=== PATIENT | female | born 1945 | race Asian ===

== ENCOUNTER 2016-11-08 12:26 | Outpatient (CLI) | payer MEDICARE, OTHER ==
--- NOTE | 2016-11-09 17:55 | Mammography Report ---
DIGITAL SCREENING MAMMOGRAM: 11/08/2016 CLINICAL INDICATION: A 71-year-old for screening. COMPARISON: 11/2015, 10/2012, 08/2011, 08/2010, 07/2009. TECHNIQUE: Routine CC and MLO projections were obtained of the breasts as well as bilateral laterall y exaggerated craniocaudal views. FINDINGS: Parenchymal tissue within both breasts is heterogeneously dense, which may lower the sensi tivity of mammography; however, there are no dominant masses, suspicious microcalcifications, or seco ndary signs of malignancy. In comparison to the previous studies, there are no significant changes. ASSESSMENT: NO MAMMOGRAPHIC EVIDENCE OF MALIGNANCY. NO SIGNIFICANT INTERVAL CHANGES. RECOMMENDATION: Screening mammography is recommended annually. BI-RADS category 1 - negative. STANDARD QUALIFYING STATEMENTS 1. This examination was reviewed with the aid of Computed-Aided Detection (CAD). 2. A negative or benign imaging report should not delay biopsy if clinically suspicious findings are present. Consider surgical consultation if warranted. More than 5% of cancers are not identified by i maging. 3. Dense breasts may obscure an underlying neoplasm. JOB #: [id number] EXT JOB #:[id number]
== END 2016-11-08 12:27 | disposition home or self-care (01) ==
LOC: DI 12:26
PROVIDERS: ATTEND Physician Assistant Medical
DX: Z12.31 Encounter for screening mammogram for malignant neoplasm of breast (principal)
CPT/HCPCS: 77067

== ENCOUNTER 2017-08-25 13:50 | Outpatient (CLI) | payer MEDICARE, OTHER ==
[2017-08-25 19:19] LABS: BASOPHILS % (AUTO) 0.7 %; EOSINOPHILS % (AUTO) 0.4 %; LYMPHOCYTES % (AUTO) 52.7 %; MEAN CORPUSCULAR HEMOGLOBIN 32.1 pg (27.0-31.0); MEAN CORPUSCULAR HGB CONC 33.2 g/dL (32.0-36.0); MEAN CORPUSCULAR VOLUME 96.7 fL (81.0-99.0); MEAN PLATELET VOLUME 10.3 fL (7.9-10.8); MONOCYTES % (AUTO) 14.8 %; NEUTROPHILS % (AUTO) 31.4 %; PLT - PLATELET COUNT 153 10^3/uL (130-450); RED BLOOD COUNT 4.04 10^6/uL (4.20-5.40); RED CELL DISTRIBUTION WIDTH 12.2 % (12.0-15.0); WHITE BLOOD COUNT 3.5 x10^3/uL (4.8-10.8)
[2017-08-25 19:24] LABS: ABNORMAL LYMPHS % (MANUAL) 0 %; BAND NEUTROPHILS % (MANUAL) 0 %
[2017-08-25 19:28] LABS: ALBUMIN 4.4 g/dL (3.2-5.5); ALBUMIN/GLOBULIN RATIO 1.1 (1.0-2.2); ALKALINE PHOSPHATASE 58 IU/L (42-121); ALT ALANINE AMINOTRANSFERASE < 10 IU/L (10-60); AST ASPARTATE AMINOTRANSFERASE 23 IU/L (10-42); BILIRUBIN,TOTAL 1.1 mg/dL (0.2-1.0); BUN - BLOOD UREA NITROGEN 18 mg/dL (6-20); CALCIUM 9.6 mg/dL (8.5-10.3); CARBON DIOXIDE - CO2 27 mmol/L (21-32); CHLORIDE 101 mmol/L (101-111); CHOL/HDL RATIO 2.6 (<4.4); CHOLESTEROL 151 mg/dL; CREATININE 0.7 mg/dL (0.4-1.0); GFR - MDRD 83 (>89); GLUCOSE 93 mg/dL (70-100); HDL CHOLESTEROL 57 mg/dL; LDL CHOLESTEROL,CALCULATED 79 mg/dL; LDL/HDL RATIO 1.4 (<4.4); SODIUM 138 mmol/L (135-145); TOTAL PROTEIN 8.3 g/dL (6.7-8.2); VLDL CHOLESTEROL 15 mg/dL
[2017-08-25 19:54] LABS: DIFFERENTIAL COMMENT MANUAL DIFFERENTIAL; LYMPHOCYTES # (MANUAL) 2.3 10^3/uL (1.5-3.5); LYMPHOCYTES % (MANUAL) 65 %; MONOCYTES # (MANUAL) 0.3 10^3/uL (0.0-1.0); NEUTROPHILS # (MANUAL) 0.9 10^3/uL (1.5-6.6); NEUTROPHILS % (MANUAL) 27 %; PLATELET ESTIMATE, MANUAL NORMAL (130-450,000) (NORMAL); PLATELET MORPHOLOGY NORMAL APPEARANCE (NORMAL); RBC MORPHOLOGY (MULTIPLE) NORMAL APPEARANCE (NORMAL)
== END 2017-08-25 13:51 | disposition home or self-care (01) ==
LOC: LAB.WCP 13:50
PROVIDERS: ATTEND Physician Assistant Medical
DX: I10 Essential (primary) hypertension (principal); E03.9 Hypothyroidism, unspecified; M79.671 Pain in right foot; E78.5 Hyperlipidemia, unspecified
CPT/HCPCS: 36415; 80053; 80061; 83721; 84443; 84550; 85025

== ENCOUNTER 2017-09-14 13:33 | Outpatient (CLI) | payer MEDICARE, OTHER ==
--- NOTE | 2017-09-14 14:20 | XRAY Report ---
Procedure Date: 09/14/2017 Accession Number: [id number] / [id number] Procedure: XR - Foot 3 View LT CPT Code: FULL RESULT: EXAM: Foot 3 View LT DATE: 09/14/2017 1:59 PM CLINICAL HISTORY: HYPER FLEXION OF LT FOOT DURING FALL COMPARISON: None. TECHNIQUE: 3 views. FINDINGS: Bones: Mild posterior calcaneal enthesopathy. Joints: Normal. No subluxations. Soft Tissues: Well rounded linear 6 mm calcific density seen on the oblique view only is felt to be degenerative in nature and not a osseous donor fragment. IMPRESSION: No definite fracture or dislocation. [facility]
--- NOTE | 2017-09-14 14:21 | XRAY Report ---
Procedure Date: 09/14/2017 Accession Number: [id number] / [id number] Procedure: XR - Tib/Fib LT CPT Code: FULL RESULT: EXAM: Tib/Fib LT DATE: 09/14/2017 1:59 PM CLINICAL HISTORY: [id number] COMPARISON: None. TECHNIQUE: 2 views. FINDINGS: Bones: Normal. No fracture or bone lesion. Joints: The visualized knee and ankle joints are normal. Soft Tissues: Normal. No soft tissue swelling. IMPRESSION: Normal tibia/fibula radiography. [facility]
== END 2017-09-14 13:34 | disposition home or self-care (01) ==
LOC: DI 13:33
PROVIDERS: ATTEND Family Medicine
DX: M25.572 Pain in left ankle and joints of left foot (principal)

== ENCOUNTER 2017-10-03 14:49 | Outpatient (CLI) | payer MEDICARE, OTHER ==
--- NOTE | 2017-10-03 17:48 | Ultrasound Report ---
Reason: ABDOMINAL PAIN, LEFT UPPER QUADRANT Procedure Date: 10/03/2017 Accession Number: [id number] / [id number] Procedure: US - Abdomen Complete CPT Code: FULL RESULT: EXAM: ABDOMEN ULTRASOUND EXAM DATE: 10/03/2017 04:00 PM. CLINICAL HISTORY: Left upper quadrant abdominal pain COMPARISON: Complete abdominal ultrasound 07/26/2011. TECHNIQUE: Real-time scanning was performed with static images obtained. FINDINGS: Liver: Coarsened and mildly increased hepatic echogenicity without focal solid lesion. Benign simple cyst in the right hepatic lobe measures up to 7 mm. Normal size, 13.5 cm. Main portal vein flow: Hepatopetal. Gallbladder: No stones, wall thickening or sonographic Fishman sign. Small 2 mm polyp, previously 3 mm, almost certainly benign and does not warrant imaging follow-up given its small size of less than 6 mm. Biliary System: Common bile duct measures 5.9 mm. No intrahepatic or extrahepatic ductal dilatation. Pancreas: Visualized portion is unremarkable. Kidneys: Right: 10.2 cm longitudinally. Normal. No contour-deforming mass, stones, or hydronephrosis. Left: 10.1 cm longitudinally. Normal. No contour-deforming mass, stones, or hydronephrosis. Spleen: 6.6 cm. Normal in size and echotexture. Aorta and Inferior Vena Cava: Unremarkable. Other: None. IMPRESSION: 1. Mildly coarsened and increased hepatic echogenicity, a nonspecific finding which can be seen with any cause of hepatocellular disease but is most often due to hepatic steatosis. No hepatomegaly or focal hepatic lesion demonstrated. 2. Otherwise unremarkable abdominal ultrasound, specifically without cause for left upper quadrant pain. [facility]
== END 2017-10-03 14:50 | disposition home or self-care (01) ==
LOC: DI 14:49
PROVIDERS: ATTEND Physician Assistant Medical
DX: R10.12 Left upper quadrant pain (principal)
CPT/HCPCS: 76700

== ENCOUNTER 2017-10-11 13:48 | Outpatient (CLI) | payer MEDICARE, OTHER | END 2017-10-11 13:49 | disposition home or self-care (01) | LOC: SC 13:48 | PROVIDERS: ATTEND Internal Medicine Pulmonary Disease | DX: G47.33 Obstructive sleep apnea (adult) (pediatric) (principal) | CPT/HCPCS: 99203; G0463; 99212 ==

== ENCOUNTER 2017-10-27 19:23 | Outpatient (CLI) | payer MEDICARE, OTHER | END 2017-10-27 19:24 | disposition home or self-care (01) | LOC: SC 19:23 | PROVIDERS: ATTEND Internal Medicine Pulmonary Disease | DX: G47.33 Obstructive sleep apnea (adult) (pediatric) (principal); G47.61 Periodic limb movement disorder; I44.1 Atrioventricular block, second degree | CPT/HCPCS: 95810 ==

== ENCOUNTER 2017-10-29 07:09 | Outpatient (CLI) | payer MEDICARE, OTHER ==
[2017-10-29] MEDS ORDERED: IOPAMIDOL-300 100 ML VIAL ONE (07:32)
[2017-10-29] MEDS ORDERED: IOPAMIDOL-300 50 ML VIAL ONE (07:32)
[2017-10-29 08:02] LABS: CALCIUM 9.2 mg/dL (8.5-10.3); CREATININE 0.6 mg/dL (0.4-1.0)
[2017-10-29] MEDS ORDERED: IOPAMIDOL-300 100 ML VIAL IVP ONE (08:19)
[2017-10-29] MEDS ORDERED: IOPAMIDOL-300 50 ML VIAL PO ONE (08:19)
--- NOTE | 2017-10-29 13:32 | CT Report ---
Reason: ABDOMINAL PAIN, LEFT UPPER QUADRANT Procedure Date: 10/29/2017 Accession Number: [id number] / [id number] Procedure: CT - Abdomen/Pelvis W/ CPT Code: FULL RESULT: EXAM: CT ABDOMEN AND PELVIS EXAM DATE: 10/29/2017 08:27 AM. CLINICAL HISTORY: ABDOMINAL PAIN, LEFT UPPER QUADRANT. COMPARISONS: None. TECHNIQUE: Routine helical CT imaging was performed through the abdomen and pelvis. IV contrast: 100 cc Isovue-300. Enteric contrast: Yes. Reconstructions: Coronal and sagittal. In accordance with CT protocol optimization, one or more of the following dose reduction techniques were utilized for this exam: automated exposure control, adjustment of mA and/or KV based on patient size, or use of iterative reconstructive technique. FINDINGS: ABDOMEN: Lung Bases: Incompletely included lower lungs are grossly clear. Heart size is within normal limits. No basilar effusions. Liver: Unremarkable. Spleen: Unremarkable. Pancreas: Unremarkable. Gallbladder/Bile Ducts: Gallbladder is unremarkable. Biliary tree is normal caliber. Adrenal Glands: Unremarkable. Kidneys: No mass, calculi, or hydronephrosis. Peritoneum/Mesentery/Bowel: No free fluid, free air, or collection. No intestinal obstruction or inflammation. The appendix is within normal limits. Lymph nodes: No mesenteric, periportal, or retroperitoneal lymphadenopathy. Vasculature: Abdominal aorta is nonaneurysmal. Portal vein is patent. PELVIS: The bladder is unremarkable for the degree of distention. Uterus is absent. No pelvic lymphadenopathy. Bones: No suspicious osseous lesions. Chronic appearing severe compression deformity of L2 and moderate of T12, likely degenerative. IMPRESSION: No acute abnormalities. [facility]
== END 2017-10-29 07:10 | disposition home or self-care (01) ==
LOC: LAB 07:09 → DI 07:10
PROVIDERS: ATTEND Physician Assistant Medical
DX: R10.12 Left upper quadrant pain (principal)
CPT/HCPCS: 36415; 74177; 80048; Q9967

== ENCOUNTER 2017-11-21 15:42 | Outpatient (CLI) | payer MEDICARE, OTHER ==
--- NOTE | 2017-11-22 09:28 | Mammography Report ---
Reason: SCREENING MAMMO Procedure Date: 11/21/2017 Accession Number: [id number] / [id number] Procedure: ANA - Screening Mammo Dig Bilat CPT Code: FULL RESULT: EXAM: Screening Mammo Dig Bilat DATE: 11/21/2017 4:28 PM CLINICAL HISTORY: Routine screening TECHNIQUE: Bilateral CC and MLO views were obtained. COMPARISON: 11-23, 11/14/2015, 10/12/2012, and 08/16/2011 FINDINGS: The breast tissue is heterogeneously dense. There is no significant interval change. No suspicious masses, clustered microcalcifications, skin thickening, or regions of architectural distortion are identified. IMPRESSION: Negative. RECOMMENDATION: Routine annual screening unless otherwise clinically indicated. BIRADS CATEGORY 1: Negative STANDARD QUALIFYING STATEMENTS: 1. This examination was reviewed with the aid of Computer-Aided Detection (CAD). 2. A negative or benign imaging report should not delay biopsy if clinically suspicious findings are present. Consider surgical consultation if warrented. More than 5% of cancers are not identified by imaging. 3. Dense breasts may obscure an underlying neoplasm.
== END 2017-11-21 15:43 | disposition home or self-care (01) ==
LOC: DI 15:42
DX: Z12.31 Encounter for screening mammogram for malignant neoplasm of breast (principal)
CPT/HCPCS: 77067

== ENCOUNTER 2017-12-01 09:21 | Outpatient (CLI) | payer MEDICARE, OTHER ==
--- NOTE | 2017-12-01 16:42 | MRI Report ---
Reason: FOOT PAIN, LEFT, ANKLE PAIN, LEFT Procedure Date: 12/01/2017 Accession Number: [id number] / [id number] Procedure: MRI - Ankle LT W/O CPT Code: FULL RESULT: EXAM: LEFT ANKLE/HINDFOOT MRI WITHOUT CONTRAST EXAM DATE: 12/01/2017 09:46 AM. CLINICAL HISTORY: FOOT PAIN, LEFT, ANKLE PAIN, LEFT. COMPARISON: ANKLE 3 VIEW LT 10/14/2017 2:28 PM. TECHNIQUE: Multiplanar, multisequence T1-weighted and fluid-sensitive sequences of the ankle/hindfoot without contrast. Other: None. FINDINGS: Bones: There is marked low T1, high T2 signal change through the angle of the calcaneum, as well as the anterior process. There is a low T1, low T2 curvilinear line extending from the posterior superior calcaneum, inferior to the angle of the calcaneum, to the anterior process. The findings are consistent with a nondisplaced fracture. The fracture breaches the posterior subtalar joint surface, series 601 and 701 image 18, and the anterior calcaneocuboid joint surface image 15. There is a coronal plane fracture through the articular surface of the sustentaculum alyssa. There is a contusion of the cuboid. The remaining tarsal bones, tibia and fibula appear unremarkable. Articular Cartilage: Unremarkable. Ligaments: The anterior and posterior tibiofibular, anterior and posterior talofibular, and calcaneofibular ligaments are intact. The deltoid ligament appears unremarkable. Complete rupture of the spring ligament inferior to the head of the talus. Anterior Tendons: The tibialis anterior, extensor hallucis longus, and extensor digitorum longus tendons are unremarkable. Medial Tendons: The tibialis posterior, flexor digitorum longus, and flexor hallucis longus tendons are unremarkable. Lateral Tendons: The peroneus brevis and longus are unremarkable. Achilles Tendon: The Achilles tendon is unremarkable. Musculature: No edema or fatty atrophy. Other: There is an effusion of the ankle and subtalar joint. Marked edema in the sinus tarsi. No plantar fasciitis. Moderate subcutaneous edema. IMPRESSION: 1. Nondisplaced fracture of the calcaneum breaching the articular surfaces of the posterior subtalar joint, sustentaculum alyssa and calcaneocuboid joint. 2. Contusion of the cuboid. 3. Complete rupture of the spring ligament. 4. Large joint effusion. [facility] MUSCULOSKELETAL RADIOLOGY SECTION
--- NOTE | 2017-12-01 17:13 | MRI Report ---
Reason: FOOT PAIN, LEFT, ANKLE PAIN, LEFT Procedure Date: 12/01/2017 Accession Number: [id number] / [id number] Procedure: MRI - Foot LT W/O CPT Code: FULL RESULT: EXAM: LEFT MIDFOOT MRI WITHOUT CONTRAST EXAM DATE: 12/01/2017 11:01 AM. CLINICAL HISTORY: FOOT PAIN, LEFT, ANKLE PAIN, LEFT. COMPARISON: ANKLE LT W/O 12/01/2017 9:46 AM. TECHNIQUE: Multiplanar, multisequence T1-weighted and fluid-sensitive sequences of the midfoot without contrast. Other: None. FINDINGS: Bones: Calcaneus fracture with marrow edema, partially visualized. Mild bone bruise with marrow edema and the cuboid, also seen on ankle MR. Remainder of the visualized midfoot and forefoot bones appear intact. Mild degenerative changes in the tarsometatarsal joints. Articular Cartilage: Unremarkable. Ligaments: The visualized intertarsal, intermetatarsal, and tarsometatarsal ligaments are intact. This includes the Lisfranc ligament. The visualized collateral ligaments are intact. Tendons: The flexor and extensor tendons are unremarkable. Musculature: No edema or fatty atrophy. Soft tissues: Soft tissue edema in the hindfoot and ankle. Midfoot and visualized forefoot soft tissues otherwise unremarkable. IMPRESSION: 1. Calcaneal fracture and cuboid bone bruise again noted. 2. Midfoot appears intact. Midfoot ligaments and visualized tendons appear intact. No additional fractures. [facility] MUSCULOSKELETAL RADIOLOGY SECTION
== END 2017-12-01 09:22 | disposition home or self-care (01) ==
LOC: DI 09:21
PROVIDERS: ATTEND Physician Assistant Medical
DX: S92.002A Unspecified fracture of left calcaneus, initial encounter for closed fracture (principal); S93.492A Sprain of other ligament of left ankle, initial encounter; S90.02XA Contusion of left ankle, initial encounter

== ENCOUNTER 2017-12-05 14:12 | Outpatient (CLI) | payer MEDICARE, OTHER | END 2017-12-05 14:13 | disposition home or self-care (01) | LOC: SC 14:12 | PROVIDERS: ATTEND Nurse Practitioner Family | DX: G47.33 Obstructive sleep apnea (adult) (pediatric) (principal); G47.61 Periodic limb movement disorder; I44.1 Atrioventricular block, second degree | CPT/HCPCS: 99215; G0463; 99212 ==

== ENCOUNTER 2017-12-14 17:56 | Outpatient (CLI) | payer MEDICARE, OTHER ==
--- NOTE | 2017-12-15 10:25 | Ultrasound Report ---
Reason: KNEE PAIN, LEFT Procedure Date: 12/14/2017 Accession Number: [id number] / [id number] Procedure: US - Ext Limited Non Vascular CPT Code: FULL RESULT: EXAM: LEFT UPPER EXTREMITY ULTRASOUND - LIMITED EXAM DATE: 12/14/2017 06:37 PM. CLINICAL HISTORY: Knee pain, left. COMPARISON: None. TECHNIQUE: Real-time scanning was performed with static images obtained. FINDINGS: There is a 3.3 x 2.3 x 5.9 cm complex cyst which contains internal debris and appears to arise between the medial head of the gastrocnemius and the semimembranosus most consistent with a Butterfield's cyst. IMPRESSION: Butterfield's cyst. [facility]
== END 2017-12-14 17:57 | disposition home or self-care (01) ==
LOC: DI 17:56
PROVIDERS: ATTEND Family Medicine
DX: M71.22 Synovial cyst of popliteal space [Baker], left knee (principal)
CPT/HCPCS: 76882

== ENCOUNTER 2018-09-28 08:59 | Outpatient (CLI) | payer MEDICARE, OTHER ==
[2018-10-03 18:04] VITALS: BP 120/70
--- NOTE | 2018-10-03 18:04 | SLEEP CARE CONSULTATION ---
Information from patient questionnaire entered by Tanya Aleman. I have reviewed and concur with the information entered by Tanya Aleman. This document represents the service I personally performed and the decisions made by me, Zoila Mendieta, RN, MSN, COUNTERINTELLIGENCE/HUMINT SPECIALIST. History of Present Illness Previous diagnosis: Mild, Severe, Obstructive Sleep Apnea-Hypopnea Syndrome AHI: 6.0 Reason for CPAP/BiPAP follow up: annual Equipment type: CPAP Equipment obtained from: [employer] Mask style: Nasal (Dreamwear) Mask brand: Respironics Backup mask available: Yes Last cushion change: 2-3 weeks ago HPI additional information: Patient here today to update her CPAP as it is over 5 years old. The device has started to get noisier and the knob just broke off. 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 When leaving [place] last week, she left the CPAP there to use when returns thinking she would get her new CPAP soon. She also forgot to bring compliance card not realizing it was needed to update her device. She tried to call [employer] while away and her phone calls were not returned. She also obtained a [employer] device and is pleased with benefit. Subjective Patient concerns: denies: aerophagia, mask discomfort, air blowing in eyes, mask leak noise, condensation in mask/hose, nasal congestion, dry mouth, nose, throat, epistaxis Observed to snore while using device: No Current pressure setting perceived as: comfortable On therapy, patient: reports: sleeping better, awakening more refreshed, being more awake and alert during the day, more rested overall. denies: drowsiness while driving Initial [place] Sleepiness Scale score: 10 Current [place] Sleepiness Scale score: 10 Allergies and Home Medications Known drug allergies: Yes (sulfa , codiene) Home medication list reviewed: Yes Allergy and home medication list: Zocor (Simvastatin) 20mg tab one daily at bedtime Toprol XL (Metoprolol Succinate) 50mg tab one daily Prozac 10 mg 2 pills daily Synthroid (Levothyroxine Sodium) 88mcg tab one daily omeprazole 20mg daily Review of Systems Review of systems same as previous: No (endoscopy showed irritation of stomach and started on omeprazole) Physical Exam Blood Pressure: 120/70 Cuff size: regular Heart Rate: 67 O2 Saturation: 98 Height: 5 ft 4 in Weight (kg): 51.075 kg Body Mass Index: 19.3 BMI Classification: Healthy weight Impression and Plan 1. Obstructive Sleep Apnea-Hypopnea Syndrome, mild but moderate in supine position, with unknown treatment compliance and unknown apnea control. On CPAP therapy, the patient has better sleep quality and is more rested overall. She reports she has been using CPAP nightly and even taking on vacation. As noted in HPI she left her old CPAP in [place] to use while there as she was updating her CPAP. However, did not realized she needed the data card to show compliance. So I advised her to have her son send data card so I could obtain data. Until then since her apnea is more severe in supine position, she was advised to avoid supine sleep with pillow positioning. She prefers supine sleep and forgot her apnea was worse in that position without CPAP. I again reviewed her past 2 polysomnographies hypnograms that showed moderate hypoxia with apneas. Upon receiving her data card, I will call patient with results and update her CPAP. A Respironics is preferred when shown sample devices. If her compliance is not at 70% or above, she will need to restart using her old CPAP until compliance met for update. Compliance guidelines reviewed for new PAP and to contact us to schedule appointment as soon as receives. Since she is having difficulty contacting her current DME , I will have my tool coordinator inform her of other supply companies. I will have her check to see if there is a national company that serves both areas of patient's residences. Patient's apnea severity and rationale for treatment to reduce apnea, improve sleep quality and reduce cardiovascular and cerebrovascular events was reviewed. I also reviewed the benefit of consistent device use of CPAP for hypertension, depression/anxiety. * Continue CPAP pressure at 6 cmH2O * Obtain compliance report * Transfer to new DME * avoid supine sleep until gets her CPAP * Contact patient with results and plan. * Notify me if snoring with mask or feeling that the pressure is too much or too little * Attempt to lose weight * Return for follow up in 1 month after new device or to meet compliance , or sooner if concerns arise * * Addendum: 10-03-18 Received compliance report from CPAP. Patient using CPAP an average of 6 hours a night with 91.1% compliance of more than 4 hours of use a night for the past 180 days until 09/12/18. The pressure is set at 6cmH20 and there is good apnea control with residual AHI of 3.3. Patient called and informed today. * * A [facility] prescription made for update and transfer to [facility] per patient choice. This company is available at both resident sites. I spent 100% of this 35 minute visit face to face with the patient with greater than 50% of this was spent time counseling the patient and coordination of care.
== END 2018-09-28 09:00 | disposition home or self-care (01) ==
LOC: SC 08:59
PROVIDERS: ATTEND Nurse Practitioner Family
DX: G47.33 Obstructive sleep apnea (adult) (pediatric) (principal)
CPT/HCPCS: 99214; G0463; 99212

== ENCOUNTER 2018-10-19 09:00 | Outpatient (CLI) | payer MEDICARE, OTHER ==
--- NOTE | 2018-10-19 16:11 | XRAY Report ---
Reason: LEFT HIP PAIN Procedure Date: 10/19/2018 Accession Number: [id number] / [id number] Procedure: WCP - Hip 1 View LT CPT Code: FULL RESULT: EXAM: LEFT HIP RADIOGRAPHY EXAM DATE: 10/19/2018 02:24 PM. CLINICAL HISTORY: LEFT HIP PAIN. COMPARISON: ABDOMEN/PELVIS W10/29/2017 8:18 AM. TECHNIQUE: 2 views. FINDINGS: Bones: Normal. No fractures or bone lesion. Joints: Normal. No dislocation. The hip joint space is preserved. Soft Tissues: Normal. No soft tissue swelling. IMPRESSION: Normal hip radiography. [facility]
--- NOTE | 2018-10-19 16:36 | XRAY Report ---
Reason: LOW BACK PAIN Procedure Date: 10/19/2018 Accession Number: [id number] / [id number] Procedure: WCP - Lumbar Spine 2 View CPT Code: FULL RESULT: EXAM: LUMBOSACRAL SPINE RADIOGRAPHY EXAM DATE: 10/19/2018 02:24 PM. CLINICAL HISTORY: LOW BACK PAIN. COMPARISONS: ABDOMEN/PELVIS W/ 10/29/2017 8:18 AM. TECHNIQUE: 2 views. FINDINGS: Alignment: Normal. No spondylolisthesis or scoliosis. Bones: Five [id number] lumbar vertebral bodies are present. Chronic mild to moderate compression deformities of T12 and L2. No acute osseous abnormality seen. Disks: Normal. Disk heights are maintained. Facets: No degenerative changes. Sacroiliac Joints: Unremarkable. Soft Tissues: Moderate stool burden. The visualized bowel gas pattern is normal. IMPRESSION: 1. No acute abnormality seen in the lumbar spine. 2. Chronic mild to moderate compression deformities of T12 and L2. [facility]
== END 2018-10-19 23:59 | disposition home or self-care (01) ==
LOC: DI.WCP 09:00 → EDSTATUS 13:35 → DI.WCP 23:59
PROVIDERS: ATTEND Physician Assistant Medical
DX: M43.8X6 Other specified deforming dorsopathies, lumbar region (principal); M43.8X4 Other specified deforming dorsopathies, thoracic region; M25.552 Pain in left hip
CPT/HCPCS: 72100

== ENCOUNTER 2018-10-19 14:06 | Outpatient (CLI) | payer MEDICARE, OTHER ==
[2018-10-19 18:55] LABS: BASOPHILS % (AUTO) 0.5 %; EOSINOPHILS % (AUTO) 0.5 %; HGB - HEMOGLOBIN 12.4 g/dL (12.0-16.0); LYMPHOCYTES # (AUTO) 1.8 10^3/uL (1.5-3.5); LYMPHOCYTES % (AUTO) 45.3 %; MEAN CORPUSCULAR HGB CONC 30.5 g/dL (32.0-36.0); MEAN CORPUSCULAR VOLUME 98.3 fL (81.0-99.0); MEAN PLATELET VOLUME 12.1 fL (7.9-10.8); MONOCYTES # (AUTO) 0.6 10^3/uL (0.0-1.0); MONOCYTES % (AUTO) 14.3 %; NEUTROPHILS # (AUTO) 1.6 10^3/uL (1.5-6.6); NEUTROPHILS % (AUTO) 38.4 %; PLT - PLATELET COUNT 165 10^3/uL (130-450); RED BLOOD COUNT 4.13 10^6/uL (4.20-5.40); RED CELL DISTRIBUTION WIDTH 12.3 % (12.0-15.0); WHITE BLOOD COUNT 4.1 x10^3/uL (4.8-10.8)
[2018-10-19 19:17] LABS: ALBUMIN 4.5 g/dL (3.2-5.5); ALBUMIN/GLOBULIN RATIO 1.1 (1.0-2.2); ALKALINE PHOSPHATASE 64 IU/L (42-121); ALT ALANINE AMINOTRANSFERASE < 10 IU/L (10-60); AST ASPARTATE AMINOTRANSFERASE 20 IU/L (10-42); BILIRUBIN,TOTAL 0.7 mg/dL (0.2-1.0); BUN - BLOOD UREA NITROGEN 14 mg/dL (6-20); CALCIUM 9.8 mg/dL (8.5-10.3); CARBON DIOXIDE - CO2 31 mmol/L (21-32); CHLORIDE 98 mmol/L (101-111); CHOL/HDL RATIO 2.9 (<4.4); CHOLESTEROL 162 mg/dL; CREATININE 0.5 mg/dL (0.4-1.0); GFR - MDRD 122 (>89); GLUCOSE 88 mg/dL (70-100); HDL CHOLESTEROL 56 mg/dL; LDL CHOLESTEROL,CALCULATED 90 mg/dL; LDL/HDL RATIO 1.6 (<4.4); SODIUM 138 mmol/L (135-145); TOTAL PROTEIN 8.5 g/dL (6.7-8.2); VLDL CHOLESTEROL 16 mg/dL
== END 2018-10-19 23:59 | disposition home or self-care (01) ==
LOC: LAB.WCP 14:06
PROVIDERS: ATTEND Physician Assistant Medical
DX: E78.5 Hyperlipidemia, unspecified (principal); E03.9 Hypothyroidism, unspecified
CPT/HCPCS: 36415; 80053; 80061; 83721; 84443; 85025

== ENCOUNTER 2018-10-24 10:36 | Outpatient (CLI) | payer MEDICARE, OTHER ==
--- NOTE | 2018-10-24 15:17 | Ultrasound Report ---
Reason: CHEST WALL MASS Procedure Date: 10/24/2018 Accession Number: [id number] / [id number] Procedure: US - Chest CPT Code: FULL RESULT: EXAM: CHEST ULTRASOUND - LIMITED EXAM DATE: 10/24/2018 12:38 PM. CLINICAL HISTORY: LEFT CHEST WALL MASS inferior to the medial left clavicle. Left shoulder and arm pain COMPARISON: None. TECHNIQUE: Real-time scanning was performed with static images obtained. FINDINGS: In the area of clinical interest inferior and slightly medial to the left clavicular no cystic or solid mass or abnormal fluid collection is identified. No soft tissue asymmetry is seen when scanning of the similar right-sided area is performed. IMPRESSION: Negative left chest wall ultrasound. No abnormality is identified by ultrasound in the area of clinical concern. If the abnormality persists consider further evaluation by CT. [facility]
== END 2018-10-24 10:37 | disposition home or self-care (01) ==
LOC: DI 10:36
PROVIDERS: ATTEND Physician Assistant Medical
DX: R22.2 Localized swelling, mass and lump, trunk (principal)
CPT/HCPCS: 76604

== ENCOUNTER 2018-11-03 10:27 | Outpatient (CLI) | payer MEDICARE, OTHER ==
--- NOTE | 2018-11-06 08:33 | DEXA Report ---
Reason: OSTEOPOROSIS Procedure Date: 11/03/2018 Accession Number: [id number] / [id number] Procedure: DEX - Dexa Spine and/or Hip CPT Code: FULL RESULT: EXAM: Dexa Spine and/or Hip DATE: 11/03/2018 12:16 PM CLINICAL HISTORY: OSTEOPOROSIS TECHNIQUE: Dual energy x-ray absorptiometry (DXA) was performed on a [employer] System. Regions measured are the AP Spine, femoral neck, and if needed forearm. COMPARISON: 2010, not applicable this study was performed on device different banquet set up person. In accordance with the International Society for Clinical Densitometry (ISCD) guidelines, data from previous exams may be reanalyzed using current recommendations and techniques. This is done to allow a more accurate basis for comparison with the current study. FINDINGS: The data for the lumbar spine is as follows: BMD (g/cm/cm) T-SCORE Z-SCORE REGION L1 0.867 -2.2 0.0 L2 1.041 -1.3 0.9 L3 0.954 -2.0 0.2 L4 0.940 -2.2 0.0 TOTAL 0.949 -1.9 0.3 NOTE: All evaluable vertebrae are used for classification The data for the hip is as follows: BMD (g/cm/cm) T-SCORE Z-SCORE REGION Neck 0.709 -2.4 -0.3 TOTAL 0.633 -3.0 -1.1 NOTE: The femoral neck or total proximal femur, whichever is lowest, is used for classification. IMPRESSION: THE WHO CLASSIFICATION BASED ON THE INTERNATIONAL REFERENCE STANDARD IS OSTEOPOROSIS. THE FRACTURE RISK IS HIGH. RECOMMENDATION: Patients with diagnosis of osteoporosis or osteopenia should have regular bone mineral density assessment. For those eligible for Medicare, routine testing is allowed once every 2 years. Testing frequency can be increased for patients who have rapidly progressing disease or for those who are receiving medical therapy to restore bone mass. COMMENT: World Health Organization (WHO) definitions for osteoporosis and osteopenia: NORMAL BMD: T-score at -1.0 or higher, fracture risk is low OSTEOPENIA BMD: T-score between -1.0 and -2.5, fracture risk is increased. OSTEOPOROSIS BMD: T-score at -2.5 or lower, fracture risk is high. National Osteoporosis Foundation recommends: 1. Obtain adequate dietary calcium (at least 1200 mg per day) and vitamin D (400-800 international units per day). 2. Participate, as appropriate, in regular weightbearing and muscle-strengthening exercise. 3. Avoid tobacco use and reduce alcohol and caffeine intake. 4. For more detailed information see the website at www.NOF.org.
--- NOTE | 2018-11-10 05:32 | DEXA Report ---
Reason: hyperparathyroidism Procedure Date: 11/03/2018 Accession Number: [id number] / [id number] Procedure: DEX - Dexa Forearm CPT Code: FULL RESULT: EXAM: Dexa Forearm DATE: 11/03/2018 12:16 PM CLINICAL HISTORY: Hyperparathyroidism TECHNIQUE: Peripheral right forearm dual energy x-ray absorptiometry (DXA) was performed on a [employer] System. COMPARISON: No previous forearm DEXA In accordance with the International Society for Clinical Densitometry (ISCD) guidelines, data from previous exams may be reanalyzed using current recommendations and techniques. This is done to allow a more accurate basis for comparison with the current study. The data for the right forearm is as follows: BMD (g/cm/cm) T-SCORE Z-SCORE REGION /3 0.521 -4.1 -2.1 NOTE: The 33% radius of the nondominant forearm is used for classification. IMPRESSION: THE WHO CLASSIFICATION BASED ON THE INTERNATIONAL REFERENCE STANDARD IS OSTEOPOROSIS. THE FRACTURE RISK IS HIGH. RECOMMENDATION: Patients with diagnosis of osteoporosis or osteopenia should have regular bone mineral density assessment. For those eligible for Medicare, routine testing is allowed once every 2 years. Testing frequency can be increased for patients who have rapidly progressing disease or for those who are receiving medical therapy to restore bone mass. COMMENT: World Health Organization (WHO) definitions for osteoporosis and osteopenia: NORMAL BMD: T-score at -1.0 or higher, fracture risk is low OSTEOPENIA BMD: T-score between -1.0 and -2.5, fracture risk is increased. OSTEOPOROSIS BMD: T-score at -2.5 or lower, fracture risk is high. National Osteoporosis Foundation recommends: 1. Obtain adequate dietary calcium (at least 1200 mg per day) and vitamin D (400-800 international units per day). 2. Participate, as appropriate, in regular weightbearing and muscle-strengthening exercise. 3. Avoid tobacco use and reduce alcohol and caffeine intake. 4. For more detailed information see the website at www.NOF.org.
== END 2018-11-03 10:28 | disposition home or self-care (01) ==
LOC: DI 10:27
PROVIDERS: ATTEND Physician Assistant Medical
DX: M81.0 Age-related osteoporosis without current pathological fracture (principal)
CPT/HCPCS: 77080; 77081

== ENCOUNTER 2018-12-01 12:22 | Outpatient (CLI) | payer MEDICARE, OTHER ==
--- NOTE | 2018-12-01 13:39 | Mammography Report ---
Reason: ROUTINE MAMMO Procedure Date: 12/01/2018 Accession Number: [id number] / [id number] Procedure: MGN - Screening Mammo Dig Bilat CPT Code: FULL RESULT: EXAM: Screening Mammo Dig Bilat DATE: 12/01/2018 12:45 PM CLINICAL HISTORY: Routine screening TECHNIQUE: (B) - Bilateral CC and MLO views were obtained. COMPARISON: 11/21/2017, 11/08/2016, 11/14/2015, 10/12/2012, 08/16/2011, 08/26/2010 and 07/11/2009 PARENCHYMAL PATTERN: (D) - The breasts demonstrate heterogeneously dense fibroglandular parenchyma bilaterally. FINDINGS: No significant interval change. There are no suspicious masses, calcifications, or areas of distortion. IMPRESSION: Negative examination. BI-RADS category 1. RECOMMENDATION: (ANNUAL) - Recommend routine annual screening mammography. BI-RADS CATEGORY: (1) - Negative. STANDARD QUALIFYING STATEMENTS: 1. This examination was not reviewed with the aid of Computer-Aided Detection (CAD). 2. A negative or benign imaging report should not preclude biopsy if clinically suspicious findings are present. 3. Dense breasts may obscure an underlying neoplasm. 4. This examination was reviewed without the aid of 3D breast imaging (tomosynthesis).
== END 2018-12-01 12:23 | disposition home or self-care (01) ==
LOC: DI.N 12:22
DX: Z12.31 Encounter for screening mammogram for malignant neoplasm of breast (principal)
CPT/HCPCS: 77067

== ENCOUNTER 2020-07-28 14:19 | Outpatient (CLI) | payer MEDICARE, OTHER ==
--- NOTE | 2020-07-28 15:23 | XRAY Report ---
PROCEDURE: Clavicle LT INDICATIONS: L SC JOINT PX TECHNIQUE: 2 views of the clavicle were acquired. COMPARISON: None. FINDINGS: Bones: No fractures or dislocations. No suspicious bony lesions. Soft tissues: No suspicious soft tissue calcifications. IMPRESSION: A definite source of clavicular/AC joint pain is not found. No trauma identified. Reviewed by: Eugene Ni MD on 07/28/2020 3:21 PM PDT Approved by: Eugene Ni MD on 07/28/2020 3:21 PM PDT Station ID: [id number]
--- NOTE | 2020-07-28 15:24 | XRAY Report ---
PROCEDURE: Shoulder 2 View LT INDICATIONS: L SHOULDER PX TECHNIQUE: 2 views of the shoulder were acquired. COMPARISON: Clavicle plain films same day.. FINDINGS: Bones: No fractures or dislocations but there is a small degree of joint space narrowing of the marixa ohumeral joint indicating mild osteoarthritis in this area.. No suspicious bony lesions. Visualized ribs appear intact. Soft tissues: No suspicious soft tissue calcifications. IMPRESSION: Mild osteoarthritis at the glenohumeral joint, no subluxation or AC joint osteoarthritis is found. Reviewed by: Eugene Ni MD on 07/28/2020 3:22 PM PDT Approved by: Eugene Ni MD on 07/28/2020 3:22 PM PDT Station ID: [id number]
== END 2020-07-28 23:59 | disposition home or self-care (01) ==
LOC: DI.N 14:19
PROVIDERS: ATTEND Family Medicine
DX: M25.512 Pain in left shoulder (principal); M19.012 Primary osteoarthritis, left shoulder

== ENCOUNTER 2020-10-24 08:00 | Outpatient (CLI) | payer MEDICARE, OTHER ==
[2020-10-24 18:40] LABS: BASOPHILS % (AUTO) 0.3 %; EOSINOPHILS % (AUTO) 0.2 %; HCT - HEMATOCRIT 39.2 % (37.0-47.0); HGB - HEMOGLOBIN 11.8 g/dL (12.0-16.0); LYMPHOCYTES # (AUTO) 1.9 10^3/uL (1.5-3.5); LYMPHOCYTES % (AUTO) 28.5 %; MEAN CORPUSCULAR HEMOGLOBIN 30.5 pg (27.0-31.0); MEAN CORPUSCULAR HGB CONC 30.1 g/dL (32.0-36.0); MEAN CORPUSCULAR VOLUME 101.3 fL (81.0-99.0); MEAN PLATELET VOLUME 10.7 fL (7.9-10.8); MONOCYTES # (AUTO) 1.3 10^3/uL (0.0-1.0); MONOCYTES % (AUTO) 19.9 %; NEUTROPHILS # (AUTO) 3.3 10^3/uL (1.5-6.6); NEUTROPHILS % (AUTO) 50.3 %; PLT - PLATELET COUNT 264 10^3/uL (130-450); RED BLOOD COUNT 3.87 10^6/uL (4.20-5.40); RED CELL DISTRIBUTION WIDTH 12.3 % (12.0-15.0); WHITE BLOOD COUNT 6.6 x10^3/uL (4.8-10.8)
[2020-10-24 20:23] LABS: ALBUMIN 4.2 g/dL (3.2-5.5); ALKALINE PHOSPHATASE 49 IU/L (42-121); ALT ALANINE AMINOTRANSFERASE 15 IU/L (10-60); AST ASPARTATE AMINOTRANSFERASE 22 IU/L (10-42); BILIRUBIN,TOTAL 0.7 mg/dL (0.2-1.0); BUN - BLOOD UREA NITROGEN 12 mg/dL (6-20); CALCIUM 9.7 mg/dL (8.5-10.3); CARBON DIOXIDE - CO2 31 mmol/L (21-32); CHLORIDE 97 mmol/L (101-111); CHOL/HDL RATIO 3.4 (<4.4); CHOLESTEROL 137 mg/dL; CREATININE 0.8 mg/dL (0.4-1.0); GFR - MDRD 70 (>89); GLUCOSE 102 mg/dL (70-100); HDL CHOLESTEROL 40 mg/dL; LDL CHOLESTEROL,CALCULATED 82 mg/dL; LDL/HDL RATIO 2.1 (<4.4); POTASSIUM 4.6 mmol/L (3.5-5.0); SODIUM 140 mmol/L (135-145); THYROID STIMULATING HORMONE 6.53 uIU/mL (0.34-5.60); TOTAL PROTEIN 8.6 g/dL (6.7-8.2); TRIGLYCERIDES 73 mg/dL; VLDL CHOLESTEROL 15 mg/dL
[2020-10-24 21:20] LABS: FREE T4 (FREE THYROXINE) 0.98 ng/dL (0.58-1.64)
== END 2020-10-24 23:59 | disposition home or self-care (01) ==
LOC: LAB.WCP 08:00
PROVIDERS: ATTEND Physician Assistant Medical
DX: I10 Essential (primary) hypertension (principal); E78.5 Hyperlipidemia, unspecified; E03.9 Hypothyroidism, unspecified
CPT/HCPCS: 36415; 80053; 80061; 83721; 84439; 84443; 85025

== ENCOUNTER 2020-11-17 15:41 | Outpatient (CLI) | payer MEDICARE, OTHER ==
--- NOTE | 2020-11-18 08:43 | Mammography Report ---
BILATERAL DIGITAL SCREENING MAMMOGRAM 3D/2D: 11/17/2020 CLINICAL: Routine screening. Comparison is made to exams dated: 12/01/2018 mammogram, 11/21/2017 mammogram, 11/08/2016 mammogram, 11/14/2015 mammogram, 10/12/2012 mammogram, and 08/16/2011 mammogram - [facility]. The tissue of both breasts is predominantly fatty. No significant masses, calcifications, or other findings are seen in either breast. There has been no significant interval change. IMPRESSION: NEGATIVE There is no mammographic evidence of malignancy. A 1 year screening mammogram is recommended. This exam was interpreted at Station ID: [id number]. NOTE: For mammograms, a report in lay terms will be sent to the patient. Approximately 15% of breast malignancies will not be visualized mammographically. In the management of a palpable breast mass, a negative mammogram must not discourage biopsy of a clinically suspicious lesion. Electronically Signed By: Chapo Suero acr/penrad:11/17/2020 16:13:17 ACR BI-RADS Category 1: Negative 3341F PARENCHYMAL PATTERN: (F) - The breast(s) demonstrate(s) diffuse fatty replacement. BI-RADS CATEGORY: (1) - 1 RECOMMENDATION: (ANNUAL) - Recommend routine annual screening mammography. [id number] 1 year screening LATERALITY: (B)
== END 2020-11-17 15:42 | disposition home or self-care (01) ==
LOC: DI.N 15:41
DX: Z12.31 Encounter for screening mammogram for malignant neoplasm of breast (principal)

== ENCOUNTER 2021-02-20 14:10 | Outpatient (CLI) | payer MEDICARE, OTHER ==
[2021-02-20 18:39] LABS: THYROID STIMULATING HORMONE 0.15 uIU/mL (0.34-5.60)
[2021-02-20 19:17] LABS: FREE T4 (FREE THYROXINE) 1.7 ng/dL (0.58-1.64)
== END 2021-02-20 14:11 | disposition home or self-care (01) ==
LOC: LAB.N 14:10
PROVIDERS: ATTEND Physician Assistant Medical
DX: E03.9 Hypothyroidism, unspecified (principal)
CPT/HCPCS: 36415; 84439; 84443

== ENCOUNTER 2021-06-26 16:10 | Outpatient (CLI) | payer MEDICARE, OTHER ==
[2021-06-26 21:16] LABS: BASOPHILS % (AUTO) 0.3 %; EOSINOPHILS % (AUTO) 0.8 %; HCT - HEMATOCRIT 37.3 % (37.0-47.0); HGB - HEMOGLOBIN 11.7 g/dL (12.0-16.0); LYMPHOCYTES # (AUTO) 1.7 10^3/uL (1.5-3.5); LYMPHOCYTES % (AUTO) 44.5 %; MEAN CORPUSCULAR HEMOGLOBIN 31.1 pg (27.0-31.0); MEAN CORPUSCULAR HGB CONC 31.4 g/dL (32.0-36.0); MEAN CORPUSCULAR VOLUME 99.2 fL (81.0-99.0); MEAN PLATELET VOLUME 12.5 fL (7.9-10.8); MONOCYTES # (AUTO) 0.8 10^3/uL (0.0-1.0); MONOCYTES % (AUTO) 20.8 %; NEUTROPHILS # (AUTO) 1.3 10^3/uL (1.5-6.6); NEUTROPHILS % (AUTO) 32.8 %; PLT - PLATELET COUNT 177 10^3/uL (130-450); RED BLOOD COUNT 3.76 10^6/uL (4.20-5.40); WHITE BLOOD COUNT 3.9 x10^3/uL (4.8-10.8)
[2021-06-26 21:35] LABS: ALBUMIN 4.5 g/dL (3.2-5.5); ALBUMIN/GLOBULIN RATIO 1.3 (1.0-2.2); ALKALINE PHOSPHATASE 71 IU/L (42-121); ALT ALANINE AMINOTRANSFERASE 11 IU/L (10-60); AST ASPARTATE AMINOTRANSFERASE 22 IU/L (10-42); BILIRUBIN,TOTAL 0.6 mg/dL (0.2-1.0); BUN - BLOOD UREA NITROGEN 19 mg/dL (6-20); CALCIUM 9.4 mg/dL (8.5-10.3); CARBON DIOXIDE - CO2 30 mmol/L (21-32); CHLORIDE 101 mmol/L (101-111); CHOL/HDL RATIO 2.9 (<4.4); CHOLESTEROL 152 mg/dL; CREATININE 0.6 mg/dL (0.4-1.0); GFR - MDRD 98 (>89); GLUCOSE 128 mg/dL (70-100); HDL CHOLESTEROL 53 mg/dL; LDL CHOLESTEROL,CALCULATED 65 mg/dL; LDL/HDL RATIO 1.2 (<4.4); SODIUM 139 mmol/L (135-145); TRIGLYCERIDES 169 mg/dL; VLDL CHOLESTEROL 34 mg/dL
[2021-06-26 22:02] LABS: THYROID STIMULATING HORMONE 0.04 uIU/mL (0.34-5.60)
[2021-06-26 22:43] LABS: FREE T4 (FREE THYROXINE) 1.51 ng/dL (0.58-1.64)
== END 2021-06-26 16:11 | disposition home or self-care (01) ==
LOC: LAB.N 16:10
PROVIDERS: ATTEND Physician Assistant Medical
DX: I10 Essential (primary) hypertension (principal); E78.5 Hyperlipidemia, unspecified; E03.9 Hypothyroidism, unspecified
CPT/HCPCS: 36415; 80053; 80061; 83721; 84439; 84443; 85025

== ENCOUNTER 2021-11-04 07:24 | Day surgery (SDC) | payer MEDICARE, OTHER ==
[2021-11-04] MEDS ORDERED: LACTATED RINGERS 1,000 ML IV ONE ×2 (07:31→09:58)
--- NOTE | 2021-11-04 08:35 | ANESTHESIA ---
Pre-Anesthesia VS, & Labs - Diagnosis EGD, screening - Procedure EGD, Colonoscopy Vital Signs: Temp Pulse Resp BP Pulse Ox O2 Flow Rate 36.3 C L 96 16 137/65 H 100 0 11/04/21 07:44 11/04/21 07:44 11/04/21 07:44 11/04/21 07:44 11/04/21 07:44 11/04/21 07:44 Height: 5 ft 5 in Weight (kg): 47.2 kg Body Mass Index: 17.3 BMI Classification: Underweight - NPO >8 hours - Is Patient ?: No Home Medications and Allergies Home Medications: Ambulatory Orders Metoprolol Succinate [Toprol Xl] 50 mg PO DAILY 10/29/21 Venlafaxine ER [Effexor ER] 75 mg PO DAILY 10/29/21 Levothyroxine [Synthroid] 88 mcg PO DAILY 11/08/13 Simvastatin 20 mg PO DAILY 11/08/13 Metoprolol Succinate [Toprol Xl] 50 mg PO DAILY 10/29/21 Venlafaxine ER [Effexor ER] 75 mg PO DAILY 10/29/21 Allergies/Adverse Reactions: Allergies Allergy/AdvReac Type Severity Reaction Status Date / Time codeine Allergy Nausea Verified 11/09/13 08:36 Sulfa (Sulfonamide Allergy Rash Verified 11/09/13 08:36 Antibiotics) Anes History & Medical History - Anesthetic History Anesthesia Complications: reports: No previous complications - Medical History Cardiovascular: reports: Hypertension, High cholesterol, Murmur, Arrhythmia, Valve disorder Pulmonary: reports: Sleep apnea Gastrointestinal: reports: GERD, Colon polyps Urinary: reports: None Musculoskeletal: reports: None Endocrine/Autoimmune: reports: HyPOthyroidism Skin: reports: None History of Cancer?: No - Surgical History General: reports: Colonoscopy, EGD, Other Gynecologic: reports: Hysterectomy Exam General: Alert, Oriented x3, Cooperative Dental: WNL Mouth Opening: Greater than 4 Fingerbreadths Neck Mobility: Normal Mallampati classification: I Respiratory: Lungs clear Cardiovascular: Regular rate
[2021-11-04] MEDS ORDERED: PROPOFOL 500 MG/50 ML 500 MG/50 ML VIAL ONE (08:36)
[2021-11-04] MEDS ORDERED: LIDOCAINE-PF 2% 10 ML AMP SUBQ ONE (08:52)
--- NOTE | 2021-11-04 09:23 | ANESTHESIA ---
Pre-Anesthesia VS, & Labs - Diagnosis screening, GERD - Procedure EGD, colonoscopy Vital Signs: Temp Pulse Resp BP Pulse Ox O2 Flow Rate 36.3 C L 96 16 137/65 H 100 0 11/04/21 07:44 11/04/21 07:44 11/04/21 07:44 11/04/21 07:44 11/04/21 07:44 11/04/21 07:44 Height: 5 ft 5 in Weight (kg): 47.2 kg Body Mass Index: 17.3 BMI Classification: Underweight - NPO >8 hours - Is Patient ?: No - Lab Results Lab results reviewed: Yes Home Medications and Allergies Home Medications: Ambulatory Orders Metoprolol Succinate [Toprol Xl] 50 mg PO DAILY 10/29/21 Venlafaxine ER [Effexor ER] 75 mg PO DAILY 10/29/21 Levothyroxine [Synthroid] 88 mcg PO DAILY 11/08/13 Simvastatin 20 mg PO DAILY 11/08/13 Metoprolol Succinate [Toprol Xl] 50 mg PO DAILY 10/29/21 Venlafaxine ER [Effexor ER] 75 mg PO DAILY 10/29/21 Allergies/Adverse Reactions: Allergies Allergy/AdvReac Type Severity Reaction Status Date / Time codeine Allergy Nausea Verified 11/09/13 08:36 Sulfa (Sulfonamide Allergy Rash Verified 11/09/13 08:36 Antibiotics) Anes History & Medical History - Anesthetic History Anesthesia Complications: reports: No previous complications Family history of Anesthesia Complications: Denies Family history of Malignant Hyperthermia: Denies - Medical History Cardiovascular: reports: Hypertension, High cholesterol, Murmur, Arrhythmia, Valve disorder Pulmonary: reports: Sleep apnea Gastrointestinal: reports: GERD, Colon polyps Urinary: reports: None Musculoskeletal: reports: None Endocrine/Autoimmune: reports: HyPOthyroidism Skin: reports: None - Surgical History General: reports: Colonoscopy, EGD, Other Gynecologic: reports: Hysterectomy Exam General: Alert, Oriented x3, Cooperative Dental: WNL Mouth Openin Fingerbreadth Neck Mobility: Normal Mallampati classification: I Thyromental Distance: 4-6 cm Respiratory: Lungs clear, Normal breath sounds, No respiratory distress Cardiovascular: Regular rate Neurological: Normal speech Mental/Cognitive Status: Alert/Oriented X3, Normal for patient Cognitive Status: Within normal limits Plan Anesthesia Type: Total IV Consent for Procedure(s) Verified and Reviewed: No Code Status: Attempt Resuscitation ASA classification: 3-Severe systemic disease Is this case an emergency?: No
--- NOTE | 2021-11-04 09:24 | ANESTHESIA ---
Pre-Anesthesia VS, & Labs - Diagnosis family history of gastric cancer, history of polyps - Procedure EGD, Colonoscopy Vital Signs: Temp Pulse Resp BP Pulse Ox O2 Flow Rate 36.3 C L 96 16 137/65 H 100 0 11/04/21 07:44 11/04/21 07:44 11/04/21 07:44 11/04/21 07:44 11/04/21 07:44 11/04/21 07:44 Height: 5 ft 5 in Weight (kg): 47.2 kg Body Mass Index: 17.3 BMI Classification: Underweight - NPO >8 hours - Is Patient ?: No Home Medications and Allergies Home Medications: Ambulatory Orders Metoprolol Succinate [Toprol Xl] 50 mg PO DAILY 10/29/21 Venlafaxine ER [Effexor ER] 75 mg PO DAILY 10/29/21 Levothyroxine [Synthroid] 88 mcg PO DAILY 11/08/13 Simvastatin 20 mg PO DAILY 11/08/13 Metoprolol Succinate [Toprol Xl] 50 mg PO DAILY 10/29/21 Venlafaxine ER [Effexor ER] 75 mg PO DAILY 10/29/21 Allergies/Adverse Reactions: Allergies Allergy/AdvReac Type Severity Reaction Status Date / Time codeine Allergy Nausea Verified 11/09/13 08:36 Sulfa (Sulfonamide Allergy Rash Verified 11/09/13 08:36 Antibiotics) Anes History & Medical History - Anesthetic History Anesthesia Complications: reports: No previous complications - Medical History Cardiovascular: reports: Hypertension, High cholesterol, Murmur, Arrhythmia, Valve disorder Pulmonary: reports: Sleep apnea Gastrointestinal: reports: GERD, Colon polyps Urinary: reports: None Musculoskeletal: reports: None Endocrine/Autoimmune: reports: HyPOthyroidism Skin: reports: None - Surgical History General: reports: Colonoscopy, EGD, Other Gynecologic: reports: Hysterectomy Exam General: Alert, Oriented x3 Dental: WNL Neck Mobility: Normal Mallampati classification: I Thyromental Distance: greater than 6 cm Respiratory: Lungs clear Cardiovascular: Regular rate Plan Anesthesia Type: Total IV Consent for Procedure(s) Verified and Reviewed: Yes Code Status: Attempt Resuscitation ASA classification: 2-Mild systemic disease Is this case an emergency?: No
[2021-11-04] MEDS ORDERED: PROPOFOL 200 MG/20 ML VIAL IVP ONE (09:51)
[2021-11-04 10:47] VITALS: BP 117/58
--- NOTE | 2021-11-04 14:12 | ANESTHESIA POST OP EVALUATION ---
Anesthesia Post Eval - Post Anesthesia Eval Vitals: Last Vital Signs Temp 36.5 C 11/04/21 10:46 Pulse 77 11/04/21 10:46 Resp 16 11/04/21 10:46 BP 117/58 L 11/04/21 10:46 Pulse Ox 100 11/04/21 10:46 O2 Flow Rate 0 11/04/21 07:44 CV Function Including HR & BP: Stable Pain Control: Satisfactory Nausea & Vomiting: Negative Mental Status: Baseline Respiratory Status: Airway Patent Hydration Status: Satisfactory Anesthesia Complications: None
== END 2021-11-04 07:25 | disposition home or self-care (01) ==
LOC: SDS 07:24
PROVIDERS: ATTEND Surgery
DX: Z12.11 Encounter for screening for malignant neoplasm of colon (principal); K21.9 Gastro-esophageal reflux disease without esophagitis; K64.8 Other hemorrhoids; G47.30 Sleep apnea, unspecified; I10 Essential (primary) hypertension; Z80.0 Family history of malignant neoplasm of digestive organs; Z86.010 Personal history of colon polyps
CPT/HCPCS: 43235; G0105; J7120

== ENCOUNTER 2021-12-17 14:15 | Outpatient (CLI) | payer MEDICARE, OTHER ==
[2021-12-17 18:13] LABS: CALCIUM 9.6 mg/dL (8.5-10.3); CREATININE 0.6 mg/dL (0.4-1.0); POTASSIUM 4.1 mmol/L (3.5-5.0)
[2021-12-17 18:43] LABS: THYROID STIMULATING HORMONE 0.02 uIU/mL (0.34-5.60)
[2021-12-17 19:56] LABS: FREE T4 (FREE THYROXINE) 1.53 ng/dL (0.58-1.64)
[2021-12-17 20:54] LABS: ESTIMATED AVERAGE GLUCOSE 123 mg/dL (70-100); HEMOGLOBIN A1c% 5.9 % (4.27-6.07)
== END 2021-12-17 14:16 | disposition home or self-care (01) ==
LOC: LAB.N 14:15
PROVIDERS: ATTEND Physician Assistant Medical
DX: E03.9 Hypothyroidism, unspecified (principal); R73.9 Hyperglycemia, unspecified
CPT/HCPCS: 36415; 80048; 83036; 84439; 84443

== ENCOUNTER 2022-04-28 17:00 | Outpatient (CLI) | payer MEDICARE, OTHER | END 2022-04-28 23:59 | disposition home or self-care (01) | LOC: LAB 17:00 | PROVIDERS: ATTEND Physician Assistant Medical | DX: R21 Rash and other nonspecific skin eruption (principal) | CPT/HCPCS: 87070; 87181 ==

== ENCOUNTER 2022-05-10 08:00 | Outpatient (CLI) | payer MEDICARE, OTHER | END 2022-05-10 23:59 | disposition home or self-care (01) | LOC: LAB.WCP 08:00 | PROVIDERS: ATTEND Physician Assistant Medical | DX: R21 Rash and other nonspecific skin eruption (principal) | CPT/HCPCS: 87070; 87205 ==

== ENCOUNTER 2022-06-28 13:05 | Outpatient (CLI) | payer MEDICARE, OTHER ==
[2022-06-28 17:46] LABS: BASOPHILS % (AUTO) 0.6 %; EOSINOPHILS % (AUTO) 0.6 %; HCT - HEMATOCRIT 36.7 % (37.0-47.0); HGB - HEMOGLOBIN 11.2 g/dL (12.0-16.0); LYMPHOCYTES # (AUTO) 1.7 10^3/uL (1.5-3.5); LYMPHOCYTES % (AUTO) 52.4 %; MEAN CORPUSCULAR HEMOGLOBIN 30.5 pg (27.0-31.0); MEAN CORPUSCULAR HGB CONC 30.5 g/dL (32.0-36.0); MEAN PLATELET VOLUME 12.1 fL (7.9-10.8); MONOCYTES # (AUTO) 0.6 10^3/uL (0.0-1.0); MONOCYTES % (AUTO) 18.7 %; NEUTROPHILS # (AUTO) 0.9 10^3/uL (1.5-6.6); NEUTROPHILS % (AUTO) 27.1 %; PLT - PLATELET COUNT 229 10^3/uL (130-450); RED BLOOD COUNT 3.67 10^6/uL (4.20-5.40); RED CELL DISTRIBUTION WIDTH 11.9 % (12.0-15.0); WHITE BLOOD COUNT 3.3 x10^3/uL (4.8-10.8)
[2022-06-28 17:56] LABS: ALBUMIN 3.9 g/dL (3.2-5.5); ALBUMIN/GLOBULIN RATIO 0.8 (1.0-2.2); ALKALINE PHOSPHATASE 66 IU/L (42-121); ALT ALANINE AMINOTRANSFERASE 12 IU/L (10-60); AST ASPARTATE AMINOTRANSFERASE 26 IU/L (10-42); BILIRUBIN,TOTAL 0.5 mg/dL (0.2-1.0); BUN - BLOOD UREA NITROGEN 18 mg/dL (6-20); CALCIUM 9.5 mg/dL (8.5-10.3); CARBON DIOXIDE - CO2 32 mmol/L (21-32); CHLORIDE 102 mmol/L (101-111); CHOL/HDL RATIO 2.6 (<4.4); CHOLESTEROL 113 mg/dL; CREATININE 0.6 mg/dL (0.4-1.0); GFR - MDRD 97 (>89); GLUCOSE 106 mg/dL (70-100); HDL CHOLESTEROL 43 mg/dL; LDL CHOLESTEROL,CALCULATED 61 mg/dL; LDL/HDL RATIO 1.4 (<4.4); POTASSIUM 4.2 mmol/L (3.5-5.0); SODIUM 138 mmol/L (135-145); TOTAL PROTEIN 8.6 g/dL (6.7-8.2); TRIGLYCERIDES 43 mg/dL; VLDL CHOLESTEROL 9 mg/dL
[2022-06-28 17:59] LABS: THYROID STIMULATING HORMONE 0.17 uIU/mL (0.34-5.60)
[2022-06-28 18:33] LABS: FREE T4 (FREE THYROXINE) 1.88 ng/dL (0.58-1.64)
== END 2022-06-28 13:06 | disposition home or self-care (01) ==
LOC: LAB.N 13:05
PROVIDERS: ATTEND Physician Assistant Medical
DX: E78.5 Hyperlipidemia, unspecified (principal); E03.9 Hypothyroidism, unspecified; I10 Essential (primary) hypertension
CPT/HCPCS: 36415; 80053; 80061; 83721; 84439; 84443; 85025

== ENCOUNTER 2022-06-30 15:32 | Outpatient (CLI) | payer MEDICARE, OTHER ==
--- NOTE | 2022-06-30 16:27 | Sleep Patient Instructions ---
Sleep Center Visit Summary - Patient Visit Information Reason for Visit: Initial consult to re-establish care for CPAP therapy - Patient Instructions Additional Instructions: You were here for follow up of CPAP therapy. You will be continued on CPAP therapy with pressure changed to 7 cmH2O. Please let us know if the pressure change is uncomfortable and we can make further adjustments of the pressure. A prescription to update supplies with your DME supplier, [employer], will be sent. This will include a mask fitting for the full face mask. You should follow up with sleep care in 1-2 months. You may contact us sooner for any questions or concerns. - Clinic Information Contact: [facility] [address] [place] [address] [email or web address] T: [phone]
--- NOTE | 2022-06-30 16:32 | SLEEP CARE CONSULTATION ---
Information from patient questionnaire entered by Mee Hastings. I have reviewed and concur with the information entered by Mee Hastings. This document represents the service I personally performed and the decisions made by me, Adriana Dave ARNP. History of Present Illness Service Date and Time: 06/30/2022 1532 Reason for Visit: New patient, Previously diagnosed sleep apnea, sleep apnea on CPAP therapy, Re-establish care Chief Complaint: reports: Snoring, Other (UPDATE SUPPLIES) Usual bedtime: 12PM Time it takes to fall asleep: 10MIN Snores at night: Yes Observed to quit breathing while asleep: Yes Sleeps alone due to snoring: No Number of times waking at night: 2 Reasons for waking at night: reports: Bathroom, Other (UNKOWN) Toss, Turn, or Twitch while sleeping: No Recalls having dreams: Yes Usually gets out of bed at: 6AM Feels refreshed in the morning: Yes Morning headache: No Sleepy or fatigued during the day: Yes Ever fallen asleep while driving: No Takes day naps: Yes Dreams during day naps: No Prior sleep studies: Yes Year and Where: [facility] 2018 Additional HPI information: SCOTT SEGOVIA was previously diagnosed to have mild, AHI 6, obstructive sleep apnea-hypopnea syndrome in a sleep study completed at [facility] in 2018 and comes in today for CPAP therapy. - Parasomnia Symptoms Ever been unable to move upon waking from sleep: No Walks in sleep: No Talks in sleep: No Ever acted out dreams in sleep: No Ever felt weak in the knees when startled or emotional: No Bothered by creepy, crawly, restless sensations in legs: Yes (getting better) Problems with memory or concentration: Yes CPAP Compliance Data - Data Reviewed with Patient Average duration of nightly device use: 4 hours 26 minutes Compliance rate %: 48.3 (137/180 days used) Current pressure setting (cmH2O): 6 Average residual AHI: 4.5 Average large leak: 10 mins 53 secs Compliance data discussion: She used to get supplies from [employer]. She will be with [facility] now but has not gotten any supplies from them. She has a Dreamstation that replaced her old one on recall. She got it a few months ago. She uses a nasal cushion but this has been leaving sores under her nose. Subjective Missed days of use due to: reports: illness (sinus infection), other (recall) Patient concerns: reports: other (skin irritation undernose; also has a chemical smell lately that is "annoying"). denies: aerophagia, mask discomfort, air blowing in eyes, mask leak noise, condensation in mask/hose, nasal congestion, dry mouth, nose, throat, epistaxis Observed to snore while using device: No Current pressure setting perceived as: comfortable On therapy, patient: reports: sleeping better, awakening more refreshed, being more awake and alert during the day, more rested overall. denies: drowsiness while driving Initial [place] Sleepiness Scale score: 10 Current [place] Sleepiness Scale score: 10 (06/30/22) Past Medical History Past Medical History: reports: Depression, Other (Irregular heart beat; mitral valve; Graves disease) Social History The patient's occupation is a RE. Patient is and lives in [place]. Have you smoked in the past 12 months: No Alcohol use: No Caffeine use: Yes Caffeine amount and frequency: 4 CUPS DAILY Family History Family history of sleep disordered breathing: No Allergies and Home Medications Known drug allergies: Yes (as listed) Drug allergies reviewed: Yes Home medication list reviewed: Yes Allergy and home medication list: Allergies codeine Allergy (Verified 06/29/22 15:50) Nausea Sulfa (Sulfonamide Antibiotics) Allergy (Verified 06/29/22 15:50) Rash Medications: Synthroid Metoprolol Simvastatin Venlafaxine Review of Systems Cardiovascular: reports: irregular heart rate or pulse. denies: high blood pressure Gastrointestinal: denies: heartburn Neurological: denies: headaches Psychiatric: reports: depression Ear/Nose/Throat: reports: sinus problems Endocrine: reports: thyroid disease Musculoskeletal: reports: neck pain Immunologic: reports: sneezing Physical Exam Vital signs obtained and entered by: MEE Ernst MA Blood Pressure: 108/62 (LEFT ARM) Cuff size: regular Heart Rate: 82 O2 Saturation: 98 Height: 5 ft 5 in Weight: 105 lb Body Mass Index: 17.4 BMI Classification: Underweight Neck circumference: 12.5 Impression and Plan 1. Obstructive Sleep Apnea-Hypopnea Syndrome, mild, with fair treatment compliance and good apnea control. On CPAP therapy, the patient has better sleep quality and is more rested overall. The patients pressure will be changed to CPAP 7 cmH20 for patient comfort. Patient advised to contact me if pressure change is uncomfortable so that it can be adjusted. Goals for apnea control discussed. She has been getting sores from the nasal cushion and would like to try a full face mask. I will add a mask fitting for a full face mask to her supply prescription. I encouraged her to bring up her compliance and wash her nasal cushions daily to reduce skin irritation. She voiced understanding. I will have her come back in 1-2 months to see how she is doing and recheck compliance. Patient's apnea severity and rationale for treatment to reduce apnea, improve sleep quality and reduce cardiovascular and cerebrovascular events was reviewed. I also reviewed the benefit of consistent device use of CPAP for hypertension, depression and anxiety. * Change CPAP pressure to 7 cmH2O * Update supplies * Mask fitting for full face mask * Notify me if snoring with mask or feeling that the pressure is too much or too little * Call this office if any problems using CPAP * Return for follow up in 1-2 months, or sooner if concerns arise Counseling Topics: Spare mask Visit Type: In Office Time Spent with Patient (minutes): 30 Provider Statement: I spent 100% of the Face to Face Visit with the patient with greater than 50% spent counseling the patient and coordination of care.
[2022-06-30 16:36] VITALS: BP 108/62
== END 2022-06-30 15:33 | disposition home or self-care (01) ==
LOC: SC 15:32
PROVIDERS: ATTEND Nurse Practitioner Family
DX: G47.33 Obstructive sleep apnea (adult) (pediatric) (principal)
CPT/HCPCS: 99203; G0463; 99212

== ENCOUNTER 2022-07-28 15:10 | Outpatient (CLI) | payer MEDICARE, OTHER ==
[2022-07-28 18:47] LABS: BASOPHILS % (AUTO) 0.5 %; EOSINOPHILS % (AUTO) 0.5 %; HCT - HEMATOCRIT 37.8 % (37.0-47.0); HGB - HEMOGLOBIN 11.9 g/dL (12.0-16.0); LYMPHOCYTES # (AUTO) 1.9 10^3/uL (1.5-3.5); LYMPHOCYTES % (AUTO) 52.2 %; MEAN CORPUSCULAR HEMOGLOBIN 31.3 pg (27.0-31.0); MEAN CORPUSCULAR HGB CONC 31.5 g/dL (32.0-36.0); MEAN CORPUSCULAR VOLUME 99.5 fL (81.0-99.0); MEAN PLATELET VOLUME 12.9 fL (7.9-10.8); MONOCYTES # (AUTO) 0.6 10^3/uL (0.0-1.0); MONOCYTES % (AUTO) 15.7 %; NEUTROPHILS # (AUTO) 1.1 10^3/uL (1.5-6.6); NEUTROPHILS % (AUTO) 30.8 %; PLT - PLATELET COUNT 127 10^3/uL (130-450); WHITE BLOOD COUNT 3.6 x10^3/uL (4.8-10.8)
[2022-07-28 19:34] LABS: % IRON SATURATION 28 % (20-50); IRON 102 ug/dL (28-170); TOTAL IRON BINDING CAPACITY 360 ug/dL (250-450); TRANSFERRIN 257 mg/dL (192-382)
[2022-07-28 19:42] LABS: FERRITIN 87.4 ng/mL (11.0-306.8)
== END 2022-07-28 15:11 | disposition home or self-care (01) ==
LOC: LAB.N 15:10
PROVIDERS: ATTEND Physician Assistant Medical
DX: D64.9 Anemia, unspecified (principal)
CPT/HCPCS: 36415; 82607; 82728; 82746; 83540; 84466; 85025

== ENCOUNTER 2022-09-01 15:48 | Outpatient (CLI) | payer MEDICARE, OTHER ==
--- NOTE | 2022-09-01 16:22 | Sleep Patient Instructions ---
Sleep Center Visit Summary - Patient Visit Information Reason for Visit: Two month followup for PAP therapy - Patient Instructions Additional Instructions: You were here for follow up of CPAP therapy. You will be continued on CPAP therapy with pressure at 7 cmH2O. You should follow up with sleep care in 12 months. You may contact us sooner for any questions or concerns. - Clinic Information Contact: [facility] [address] [place] [address] [email or web address] T: [phone]
--- NOTE | 2022-09-01 16:26 | SLEEP CARE CONSULTATION ---
Information from patient questionnaire entered by Mee Hastings. I have reviewed and concur with the information entered by Mee Hastings. This document represents the service I personally performed and the decisions made by me, Adriana Dave ARNP. History of Present Illness Service Date and Time: 09/01/2022 1548 Previous diagnosis: Mild, Severe, Obstructive Sleep Apnea-Hypopnea Syndrome AHI: 6.0 Reason for follow up: other (2 MONTH F/U) Equipment type: CPAP (SD CARD NEEDED) Equipment obtained from: Other ([facility]; getting supplies) Mask style: Nasal pillows (Dreamwear) Mask brand: Respironics Backup mask available: No (will keep old mask when replaced) HPI additional information: SCOTT SEGOVIA was diagnosed to have mild, AHI 6, obstructive sleep apnea- hypopnea syndrome and returned today for CPAP therapy two month follow-up. CPAP Compliance Data Compliance data discussion: She received a replacement device from [employer], got a re-certified Dreamstation about 2 weeks ago and has not been using the old Dreamstation since June 2022. Subjective Patient concerns: reports: mask leak noise. denies: aerophagia, mask discomfort, air blowing in eyes, condensation in mask/hose, nasal congestion, dry mouth, nose, throat, epistaxis Observed to snore while using device: No Current pressure setting perceived as: too high On therapy, patient: reports: sleeping better, awakening more refreshed, being more awake and alert during the day, more rested overall. denies: drowsiness while driving Initial [place] Sleepiness Scale score: 10 Current [place] Sleepiness Scale score: 14 (09/01/22) Allergies and Home Medications Known drug allergies: Yes (codeine, sulfa antibiotics) Drug allergies reviewed: Yes Home medication list reviewed: Yes (no changes) Allergy and home medication list: Allergies codeine Allergy (Verified 08/31/22 14:00) Nausea Sulfa (Sulfonamide Antibiotics) Allergy (Verified 08/31/22 14:00) Rash Review of Systems Review of systems same as previous: Yes (no changes) Physical Exam Vital signs obtained and entered by: MEE Ernst MA Blood Pressure: 122/78 (LEFT ARM) Cuff size: regular Heart Rate: 80 O2 Saturation: 99 Height: 5 ft 5 in Weight: 104 lb 6.4 oz Body Mass Index: 17.4 BMI Classification: Underweight Impression and Plan 1. Obstructive Sleep Apnea-Hypopnea Syndrome, mild, with unknown treatment compliance and unknown apnea control. On CPAP therapy, the patient has better sleep quality and is more rested overall. She got her replacement from [employer] about 2 weeks ago and has been using it. She did not bring in the machine or SD card so we can get her data. She states she can bring it back to the office. As long as her pressure is optimal and her compliance is good we will followup with her next year. She voiced understanding and agreement with plan of care. Patient 's apnea severity and rationale for treatment to reduce apnea, improve sleep quality and reduce cardiovascular and cerebrovascular events was reviewed. I also reviewed the benefit of consistent device use of CPAP for hypertension, depression and cardiac disease. * Continue CPAP pressure at 7 cmH2O * Notify me if snoring with mask or feeling that the pressure is too much or too little * Attempt to lose weight * Call this office if any problems using CPAP * Return for follow up in 12 months, or sooner if concerns arise Counseling Topics: Spare mask Visit Type: In Office Time Spent with Patient (minutes): 20 Provider Statement: I spent 100% of the Face to Face Visit with the patient with greater than 50% spent counseling the patient and coordination of care.
[2022-09-01 16:38] VITALS: BP 122/78
== END 2022-09-01 15:49 | disposition home or self-care (01) ==
LOC: SC 15:48
PROVIDERS: ATTEND Nurse Practitioner Family
DX: G47.33 Obstructive sleep apnea (adult) (pediatric) (principal)
CPT/HCPCS: 99213; G0463; 99212

== ENCOUNTER 2022-09-02 14:55 | Outpatient (CLI) | payer MEDICARE, OTHER ==
--- NOTE | 2022-09-06 11:58 | Mammography Report ---
BILATERAL DIGITAL SCREENING MAMMOGRAM 3D/2D: 09/02/2022 CLINICAL: Routine screening. Comparison is made to exams dated: 11/17/2020 mammogram, 11/21/2017 mammogram, 12/01/2018 mammogram, 11/08/2016 mammogram, 11/14/2015 mammogram, and 10/12/2012 mammogram - [facility]. Both breasts are extremely dense, which lowers the sensitivity of mammography (category d />75% gland ular tissue). No significant masses, calcifications, or other findings are seen in either breast. There has been no significant interval change. IMPRESSION: NEGATIVE There is no mammographic evidence of malignancy. A 1 year screening mammogram is recommended. Based on the Tyrer Cuzick model (a risk assessment model) the patients lifetime risk is 6.3% and her 10 year risk is 6.3%. According to the ACR, ACS, and NCCN guidelines, an annual breast MRI exam sherita g with mammogram is recommended if the patients lifetime risk is 20% or greater. This exam was interpreted at Station ID: [id number]. NOTE: For mammograms, a report in lay terms will be sent to the patient. Approximately 15% of breast malignancies will not be visualized mammographically. In the management of a palpable breast mass, a negative mammogram must not discourage biopsy of a clinically suspicious lesion. Electronically Signed By: Nabor ruiz/rey:09/03/2022 12:10:17 letter sent: No_Letter ACR BI-RADS Category 1: Negative 3341F PARENCHYMAL PATTERN: (VD) - The breast(s) demonstrate(s) extremely dense parenchyma, limiting the sen sitivity of mammography. BI-RADS CATEGORY: (1) - 1 Mammogram [id number] 1 year screening LATERALITY: (B)
== END 2022-09-02 14:56 | disposition home or self-care (01) ==
LOC: DI 14:55
DX: Z12.31 Encounter for screening mammogram for malignant neoplasm of breast (principal)

== ENCOUNTER 2022-09-02 14:56 | Outpatient (CLI) | payer MEDICARE, OTHER ==
--- NOTE | 2022-09-03 12:29 | DEXA Report ---
PROCEDURE: Dexa Spine and/or Hip INDICATIONS: POST MENOPAUSAL TECHNIQUE: Dual energy x-ray absorptiometry (DXA) was performed on a Semanticator System. Regions measur ed are the AP Spine, femoral neck, and if needed forearm. COMPARISON: DEXA 11/03/2018 FINDINGS: Lumbar Spine: Bone Mineral Density 0.943 g/cm/cm,T score -2.0. There has been no statistically significant change in bone mineral density since the prior study. Left Femoral Neck: Bone Mineral Density 0.673 g/cm/cm, T score -2.6. Left Hip: Bone Mineral Density 0.633 g/cm/cm,T score -3.0. There has been no statistically significant change i n bone mineral density since the prior study. Left Forearm: Bone Mineral Density 0.518 g/cm/cm, T score -4.1. (T score greater or equal to -1.0: NORMAL) (T score from -1.1 to -2.4: OSTEOPENIA) (T score less than or equal to -2.5 to: OSTEOPOROSIS) Impression: By WHO criteria, this patient has osteoporosis. No statistical interval change in bone minteral density of the lumbar spine. No statistical interval change in bone minteral density of the hip. Patients with diagnosis of osteoporosis or osteopenia should have regular bone mineral density assess ment. For those eligible for Medicare, routine testing is allowed once every 2 years. Testing frequ ency can be increased for patients who have rapidly progressing disease or for those who are receivin g medical therapy to restore bone mass. Reviewed by: Edu Nicholson MD on 09/03/2022 12:28 PM PDT Approved by: Edu Nicholson MD on 09/03/2022 12:28 PM PDT Station ID: [id number]
== END 2022-09-02 14:57 | disposition home or self-care (01) ==
LOC: DI 14:56
PROVIDERS: ATTEND Physician Assistant Medical
DX: Z78.0 Asymptomatic menopausal state (principal); M81.0 Age-related osteoporosis without current pathological fracture

== ENCOUNTER 2022-10-14 15:28 | Outpatient (CLI) | payer MEDICARE, OTHER ==
--- NOTE | 2022-10-14 15:51 | Sleep Patient Instructions ---
Sleep Center Visit Summary - Patient Visit Information Reason for Visit: ONE MONTH FOLLOWUP FOR PAP THERAPY - Patient Instructions Additional Instructions: You were here for follow up of CPAP therapy. You will be continued on CPAP therapy with pressure at 7 cmH2O. You should follow up with sleep care in 12 months. You may contact us sooner for any questions or concerns. - Clinic Information Contact: [facility] [address] [place] [address] [email or web address] T: [phone]
--- NOTE | 2022-10-14 15:59 | SLEEP CARE CONSULTATION ---
Information from patient questionnaire entered by Mee Hastings. I have reviewed and concur with the information entered by Mee Hastings. This document represents the service I personally performed and the decisions made by me, Adriana Dave ARNP. History of Present Illness Service Date and Time: 10/14/2022 152 Previous diagnosis: Mild, Severe, Obstructive Sleep Apnea-Hypopnea Syndrome AHI: 6.0 Reason for follow up: one month (F/U ) Equipment type: CPAP (Dreamstation re-certified; SD CARD NEEDED) Equipment obtained from: Other ([facility]; getting supplies) Mask style: Nasal pillows (Dreamwear) Backup mask available: Yes (old mask) Prior sleep studies: Yes Year and Where: [facility] 2018 HPI additional information: SCOTT SEGOVIA was diagnosed to have mild, AHI 6, obstructive sleep apnea- hypopnea syndrome and returned today for CPAP therapy one month follow-up. Sleep Study - Results Prior sleep studies: Yes Year and Where: [facility] 2018 CPAP Compliance Data - Data Reviewed with Patient Average duration of nightly device use: 4 hours 31 minutes Compliance rate %: 63.3 ( days used) Current pressure setting (cmH2O): 7 Average residual AHI: 5.3 Central apnea: 1.2 Obstructive apnea: 0.3 Hypopnea: 3.8 Average large leak: 1 hour 1 mins 38 secs Subjective Missed days of use due to: reports: other (taking care of at home, does not get much sleep) Patient concerns: reports: mask discomfort, mask leak noise. denies: aerophagia, air blowing in eyes, condensation in mask/hose, nasal congestion, dry mouth, nose, throat, epistaxis Observed to snore while using device: No Current pressure setting perceived as: comfortable On therapy, patient: reports: other (can't tell difference) Initial Sebastian Sleepiness Scale score: 10 Current Sebastian Sleepiness Scale score: 16 (10/14/22) Allergies and Home Medications Known drug allergies: Yes (as listed) Drug allergies reviewed: Yes Home medication list reviewed: Yes (no changes) Allergy and home medication list: Allergies codeine Allergy (Verified 10/13/22 16:55) Nausea Sulfa (Sulfonamide Antibiotics) Allergy (Verified 10/13/22 16:55) Rash Review of Systems Review of systems same as previous: Yes (no changes) Physical Exam Vital signs obtained and entered by: MEE Ernst MA Blood Pressure: 128/78 (LEFT ARM) Cuff size: regular Heart Rate: 83 O2 Saturation: 100 Height: 5 ft 5 in Weight: 105 lb Body Mass Index: 17.4 BMI Classification: Underweight Impression and Plan 1. Obstructive Sleep Apnea-Hypopnea Syndrome, mild, with fair treatment compliance and good apnea control with minimal elevation of residual AHI. 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 She states she does not usually feel rested and is sleepy during the day but she only average 4.5 hours of sleep a night. She is putting on her CPAP at least 80% of the time but does not always get 4 hours or more. Her AHI is minimally elevated at 5.3 but patient feels the pressure is almost too much. I noted that she has a large average leak over an hour and her highest index is hypopneas at 3.8. I do not thinks she needs an adjustment of her pressure today. We will see her again in a year. Patient's apnea severity and rationale for treatment to reduce apnea, improve sleep quality and reduce cardiovascular and cerebrovascular events was reviewed. I also reviewed the benefit of consistent device use of CPAP for hypertension, cardiac disease and depression. * Continue CPAP pressure at 7 cmH2O * Notify me if snoring with mask or feeling that the pressure is too much or too little * Call this office if any problems using CPAP * Return for follow up in 1 year, or sooner if concerns arise Counseling Topics: Spare mask Visit Type: In Office Time Spent with Patient (minutes): 19 Provider Statement: I spent 100% of the Face to Face Visit with the patient with greater than 50% spent counseling the patient and coordination of care.
[2022-10-14 16:07] VITALS: BP 128/78; O2SAT 100
== END 2022-10-14 15:29 | disposition home or self-care (01) ==
LOC: SC 15:28
PROVIDERS: ATTEND Nurse Practitioner Family
DX: G47.33 Obstructive sleep apnea (adult) (pediatric) (principal)
CPT/HCPCS: 99212; G0463

== ENCOUNTER 2022-12-14 15:16 | Outpatient (CLI) | payer MEDICARE, OTHER ==
[2022-12-14 16:01] LABS: CREATININE 0.7 mg/dL (0.6-1.3); POTASSIUM 4.2 mmol/L (3.5-4.5)
== END 2022-12-14 15:17 | disposition home or self-care (01) ==
LOC: LAB 15:16
PROVIDERS: ATTEND Internal Medicine Endocrinology, Diabetes & Metabolism
DX: M81.0 Age-related osteoporosis without current pathological fracture (principal)
CPT/HCPCS: 36415; 80048; 81599; 82306; 83970

== ENCOUNTER 2022-12-23 08:00 | Outpatient (CLI) | payer MEDICARE, OTHER | END 2022-12-23 23:59 | disposition home or self-care (01) | LOC: LAB.R 08:00 | PROVIDERS: ATTEND Internal Medicine Endocrinology, Diabetes & Metabolism | DX: M81.0 Age-related osteoporosis without current pathological fracture (principal) | CPT/HCPCS: 81599; 82340; 82523; 82570 ==

== ENCOUNTER 2023-06-20 15:31 | Outpatient (CLI) | payer MEDICARE, OTHER ==
[2023-06-20 17:51] LABS: BASOPHILS % (AUTO) 0.5 %; EOSINOPHILS % (AUTO) 0.5 %; HCT - HEMATOCRIT 37.2 % (37.0-47.0); HGB - HEMOGLOBIN 11.4 g/dL (12.0-16.0); LYMPHOCYTES # (AUTO) 2.5 10^3/uL (1.5-3.5); LYMPHOCYTES % (AUTO) 60.7 %; MEAN CORPUSCULAR HEMOGLOBIN 31.1 pg (27.0-31.0); MEAN CORPUSCULAR HGB CONC 30.6 g/dL (32.0-36.0); MEAN CORPUSCULAR VOLUME 101.4 fL (81.0-99.0); MEAN PLATELET VOLUME 13.8 fL (7.9-10.8); MONOCYTES # (AUTO) 0.6 10^3/uL (0.0-1.0); MONOCYTES % (AUTO) 15.6 %; NEUTROPHILS # (AUTO) 0.9 10^3/uL (1.5-6.6); NEUTROPHILS % (AUTO) 22.2 %; PLT - PLATELET COUNT 122 10^3/uL (130-450); RED BLOOD COUNT 3.67 10^6/uL (4.20-5.40); WHITE BLOOD COUNT 4.1 x10^3/uL (4.8-10.8)
[2023-06-20 18:16] LABS: ALBUMIN 4.6 g/dL (3.2-5.5); ALBUMIN/GLOBULIN RATIO 1.2 (1.0-2.2); ALKALINE PHOSPHATASE 72 IU/L (42-121); ALT ALANINE AMINOTRANSFERASE 8 IU/L (10-60); AST ASPARTATE AMINOTRANSFERASE 18 IU/L (10-42); BILIRUBIN,TOTAL 0.5 mg/dL (0.2-1.0); BUN - BLOOD UREA NITROGEN 14 mg/dL (6-20); CALCIUM 9.8 mg/dL (8.5-10.3); CARBON DIOXIDE - CO2 31 mmol/L (21-32); CHLORIDE 101 mmol/L (101-111); CHOL/HDL RATIO 2.1 (<4.4); CHOLESTEROL 119 mg/dL; CREATININE 0.6 mg/dL (0.6-1.3); GFR - MDRD 97 (>89); GLUCOSE 102 mg/dL (74-104); HDL CHOLESTEROL 58 mg/dL; LDL CHOLESTEROL,CALCULATED 45 mg/dL; LDL/HDL RATIO 0.8 (<4.4); POTASSIUM 3.8 mmol/L (3.5-4.5); SODIUM 137 mmol/L (135-145); TOTAL PROTEIN 8.3 g/dL (6.4-8.9); TRIGLYCERIDES 78 mg/dL (48-352); VLDL CHOLESTEROL 16 mg/dL
[2023-06-20 18:25] LABS: THYROID STIMULATING HORMONE 0.74 uIU/mL (0.34-5.60)
== END 2023-06-20 15:32 | disposition home or self-care (01) ==
LOC: LAB.N 15:31
PROVIDERS: ATTEND Physician Assistant Medical
DX: E78.5 Hyperlipidemia, unspecified (principal); E03.9 Hypothyroidism, unspecified; D64.9 Anemia, unspecified
CPT/HCPCS: 36415; 80053; 80061; 83721; 84443; 85025

== ENCOUNTER 2023-10-11 15:11 | Outpatient (CLI) | payer MEDICARE, OTHER ==
--- NOTE | 2023-10-12 11:34 | Mammography Report ---
BILATERAL DIGITAL SCREENING MAMMOGRAM 3D/2D WITH EXAGGERATED CC: 10/11/2023 CLINICAL: Routine screening. Comparison is made to exams dated: 09/02/2022 mammogram, 11/17/2020 mammogram, 12/01/2018 mammogram, 11/21/2017 mammogram, 11/08/2016 mammogram, and 11/14/2015 mammogram - [facility]. Both breasts are extremely dense, which lowers the sensitivity of mammography (category d />75% gland ular tissue). No significant masses, calcifications, or other findings are seen in either breast. There has been no significant interval change. IMPRESSION: NEGATIVE There is no mammographic evidence of malignancy. A 1 year screening mammogram is recommended. Based on the Tyrer Cuzick model (a risk assessment model) the patient's lifetime risk is 5.8% and her 10 year risk is 0.0%. According to the ACR, ACS, and NCCN guidelines, an annual breast MRI exam sherita g with mammogram is recommended if the patient's lifetime risk is 20% or greater. This exam was interpreted at Station ID: [id number]. NOTE: For mammograms, a report in lay terms will be sent to the patient. Approximately 15% of breast malignancies will not be visualized mammographically. In the management of a palpable breast mass, a negative mammogram must not discourage biopsy of a clinically suspicious lesion. Electronically Signed By: Edie Ballard M.D., Ph.D. eb/rey:10/12/2023 10:38:16 letter sent: No_Letter ACR BI-RADS Category 1: Negative 3341F PARENCHYMAL PATTERN: (VD) - The breast(s) demonstrate(s) extremely dense parenchyma, limiting the sen sitivity of mammography. BI-RADS CATEGORY: (1) - 1 RECOMMENDATION: (ANNUAL) - Recommend routine annual screening mammography. [id number] 1 year screening LATERALITY: (B)
== END 2023-10-11 15:12 | disposition home or self-care (01) ==
LOC: DI 15:11
DX: Z12.31 Encounter for screening mammogram for malignant neoplasm of breast (principal); R92.343 Mammographic extreme density, bilateral breasts